=== PATIENT | female | born 1990 | race American Indian/Alaskan Native ===

== ENCOUNTER 2019-10-03 17:40 | Emergency (ER) | payer SELFPAY ==
[2019-10-03 18:14] VITALS: BP 138/76
--- NOTE | 2019-10-03 18:18 | Event Note ---
ED Screening Note Date of service: 10/03/19 Time: 18:18 ED Screening Note: This initial assessment/diagnostic orders/clinical plan/treatment(s) is/are subject to change based on patients health status, clinical progression and re- assessment by fellow clinical providers in the ED. Further treatment and workup at subsequent clinical providers discretion. Patient/guardian urged not to elope from the ED as their condition may be serious if not clinically assessed and managed. Initial orders include: 29yo F states that she has vaginal irritation and clear discharge, she denies abdominal pain and fever. She further states that she has chronic BV due to sitting and taking baths. Due to the pt's complaints, she was explained that she is not an emergent visit and will be MSE screened out.
== END 2019-10-03 18:55 | disposition left against medical advice (07) ==
LOC: ED 17:40
DX: N89.8 Other specified noninflammatory disorders of vagina (principal); Z53.21 Procedure and treatment not carried out due to patient leaving prior to being seen by health care provider